=== PATIENT | female | born 1985 | race Caucasian/White ===

== ENCOUNTER 2023-05-08 09:34 | Emergency (ER) | payer OTHER ==
[~2023-05-08] VITALS: Ht 170.2 cm; Wt 67.6 kg
[2023-05-08 09:48] VITALS: BP 134/68; TEMP 98.7; O2SAT 100
[2023-05-08] MEDS ORDERED: MUPI22OI2 TP (11:38)
[2023-05-08] MEDS ORDERED: CEPH500C2 PO (11:38)
[2023-05-08] MEDS ORDERED: SULF1TAB48 PO (11:38)
[2023-05-08] MEDS ORDERED: IBUP-1955 PO (11:38)
== END 2023-05-08 11:45 | disposition home or self-care (01) ==
LOC: ER 09:51
DX: S00.06XA Insect bite (nonvenomous) of scalp, initial encounter (principal); Z60.2 Problems related to living alone; W57.XXXA Bitten or stung by nonvenomous insect and other nonvenomous arthropods, initial encounter; Y93.89 Activity, other specified; Y92.89 Other specified places as the place of occurrence of the external cause; Y99.8 Other external cause status